=== PATIENT | male | born 1940 ===

== ENCOUNTER 2017-01-26 07:15 | Day surgery (SDC) | payer MEDICARE ==
[2017-01-26 07:26] VITALS: BMI 23.8
[2017-01-26] MEDS ORDERED: Lactated Ringer's 1,000 ML IV ONE (09:00)
[2017-01-26] MEDS ORDERED: cefTRIAXone IV 1 gm in Dextros 50 ML IVPB ONE (09:01)
[2017-01-26] MEDS ORDERED: Propofol 10 mg/ml Inj (20 ML) ONE (09:02)
[2017-01-26] MEDS ORDERED: ePHEDrine 50 mg/ml Inj ONE (09:02)
[2017-01-26] MEDS ORDERED: Succinylcholine 200 mg/10 ml Inj IV ONE (09:03)
[2017-01-26] MEDS ORDERED: Lidocaine 4% (Laryng-O-Jet) Kit MM ONE (09:04)
[2017-01-26] MEDS ORDERED: Phenylephrine 10 mg/ml Inj ONE (09:05)
[2017-01-26] MEDS ORDERED: cefTRIAXone (Rocephin) 1 gm Inj IM ONE (09:05)
[2017-01-26] MEDS ORDERED: Sevoflurane - Inhalation Anesthetic Liq (250 ml) ONE (09:14)
[2017-01-26] MEDS ORDERED: HYDROmorphone 0.5 mg/0.5 ml ISec IVP PRN (09:43)
[2017-01-26] MEDS ORDERED: Lactated Ringer's 1,000 ML IV SCH (09:45)
[2017-01-26 10:08] VITALS: RESP 20
[2017-01-26 12:35] VITALS: O2SAT 98
[2017-01-26 13:43] VITALS: BP 163/69; PULSE 78; TEMP 97.7
--- NOTE | 2017-01-26 17:03 | OP ---
PROCEDURE DATE: 01/26/2017 PREOPERATIVE DIAGNOSES: Gross hematuria, bladder tumor. POSTOPERATIVE DIAGNOSES: Gross hematuria, bladder tumor. PROCEDURE PERFORMED: Cystoscopy with transurethral resection of bladder tumor, medium size. DESCRIPTION OF PROCEDURE: The patient was placed on the operating room table in dorsal lithotomy position. The area of the groin was draped and prepped in a sterile manner. Using a #24 cystoscope, I attempted entry into the urethra, but could not. I had to use [place] sounds to dilate to a size 28-[place] followed by the insertion of a 24 continuous flow resectoscope. He had a distal urethral stricture that was successfully dilated. At this time, once inside the bladder, there was some blood clot that was within the bladder and there was a moderate-sized bladder tumor on the right lateral wall to the floor of the bladder. It was separate from the ureteral orifice on that side. I resected that tumor completely. We evaluated the rest of the bladder for other bladder tumors and I did not see any. He had some bleeding noted at the area of the middle lobe of the prostate which with cautery, I was able to cauterize that to dryness. Following this, I aspirated the bladder tumor fragments from the bladder and sent those for specimen analysis, took a last look, there was no active bleeders at the time I removed the instrumentation. Patient then was taken from the operating room in good condition. Blood loss was minimum. Jacqueline Blanco MD
== END 2017-01-26 14:25 | disposition home or self-care (01) ==
LOC: H.OPSURG 07:15
PROVIDERS: ATTEND Urology
DX: R31.0 Gross hematuria (principal); D49.4 Neoplasm of unspecified behavior of bladder
CPT/HCPCS: 52235; 88305; J0330; J0696; J1170; J2001; J2370; J2704; J3010; J7120